=== PATIENT | male | born 1975 | race Caucasian/White ===

== ENCOUNTER 2017-03-30 18:34 | Emergency (ER) | payer OTHER ==
[~2017-03-30] VITALS: Ht 182.9 cm; Wt 152.0 kg
[~2017-03-30 18:34] MED LIST: ANGELIQ 0.25 M1 EACH PO; DEPAKOTE ER500 MG PO; DOXYCYCLINE 10100 MG PO; JANUVIA50 MG PO; LISINOPRIL20 MG PO; PERCOCET 5-3251 EACH PO; TOPAMAX100 MG PO
[2017-03-30] MEDS ORDERED: DEPAKOTE 250MG250 M1 PO (20:27)
[2017-03-30] MEDS ORDERED: HUMALOG100 UNIT/1 SUBQ (20:30)
[2017-03-30] MEDS ORDERED: LEVEMIR SUBQ (20:31)
[2017-03-30] MEDS ORDERED: PROAIR RESPICL90 MCG IH (20:31)
[2017-03-30] MEDS ORDERED: NORCO 5-325 TA1 EACH PO (21:40)
[2017-03-30 22:09] VITALS: BP 118/87
== END 2017-03-30 22:10 | disposition home or self-care (01) ==
LOC: ER 18:34
DX: S16.1XXA Strain of muscle, fascia and tendon at neck level, initial encounter (principal); S49.92XA Unspecified injury of left shoulder and upper arm, initial encounter; S09.90XA Unspecified injury of head, initial encounter; Z88.6 Allergy status to analgesic agent; Z91.041 Radiographic dye allergy status; Z88.8 Allergy status to other drugs, medicaments and biological substances; V89.2XXA Person injured in unspecified motor-vehicle accident, traffic, initial encounter; Y93.89 Activity, other specified; Y92.89 Other specified places as the place of occurrence of the external cause; Y99.8 Other external cause status